=== PATIENT | male | born 1985 | race Caucasian/White ===

== ENCOUNTER 2016-11-22 03:20 | Emergency (ER) | payer SELFPAY ==
[~2016-11-22] VITALS: Ht 182.9 cm; Wt 105.0 kg
[2016-11-22 03:20] VITALS: Ht 182.9 cm; Wt 105.0 kg
[2016-11-22] MEDS ORDERED: IBUPROFEN 600 MG TAB PO ONE (04:00)
[2016-11-22] MEDS ORDERED: ONDANSETRON (ODT) 4 MG TAB ODT STA (04:00)
[2016-11-22] MEDS ORDERED: ACETAMINOPHEN 500 MG TAB PO STA (04:00)
--- NOTE | 2016-11-22 04:32 | ERD ---
ER Documentation Chief Complaint Date/Time DATE: 11/22/16 TIME: 04:17 Chief Complaint fever&vomiting, on/off SOB x 2-3 days,slight HESS HPI 31-year-old male presents here in emergency department for complaints of fever, runny nose nasal congestion, cough, on and off wheezing, headache. Patient has been having dry cough, does not cough up any phlegm or blood. Patient does not have any shortness breath or wheezing. Patient has been runny nose nasal congestion with clear nasal discharge. Patient is complaining of headache and body, throbbing pain, succession scale, not better or worse with anything. Patient also started to have vomiting. Patient has been having the symptoms for the last 2 days. Patient does not have any sick contacts. Patient does not complain of abdominal pain. Patient does not have any flank pain. Patient is now have any chest pain or palpitations. ROS All systems reviewed and are negative except as per history of present illness. Medications Home Meds Active Scripts Albuterol Sulfate* (Proair HFA*) 8.5 Gm Hfa.aer.ad, 2 PUFF INH Q4H Y for WHEEZING AND SOB, #1 INHALER Prov:IZABELA CHRISTY NP 11/22/16 Cetirizine Hcl* (Zyrtec*) 10 Mg Capsule, 10 MG PO DAILY, #30 TAB.CHEW Prov:IZABELA CHRISTY NP 11/22/16 Oxelnyucufr-K-Pojhulkrvd Hb* (Guaifenesin* DM Syrup) 120 Ml Syrup, 10 ML PO Q4H Y for COUGH, #120 ML Prov:IZABELA CHRISTY NP 11/22/16 Ibuprofen* (Motrin*) 600 Mg Tab, 600 MG PO Q6H Y for PAIN AND OR ELEVATED TEMP, #30 TAB Prov:IZABELA CHRISTY NP 11/22/16 Oseltamivir Phosphate* (Tamiflu*) 75 Mg Capsule, 75 MG PO BID for 5 Days, CAP Prov:IZABELA CHRISTY NP 11/22/16 Reported Medications [none] No Conflict Check 11/22/16 Allergies Allergies: Coded Allergies: No Known Allergy (Unverified , 11/22/16) PMhx/Soc Medical and Surgical Hx: pt denies Medical Hx, pt denies Surgical Hx History of Surgery: No Anesthesia Reaction: No Hx Neurological Disorder: No Hx Respiratory Disorders: No Hx Cardiac Disorders: No Hx Psychiatric Problems: No Hx Miscellaneous Medical Probl: No Hx Alcohol Use: No Hx Substance Use: No Hx Tobacco Use: No Smoking Status: Never smoker FmHx Family History: No coronary disease, No diabetes, No other Physical Exam Vitals Vital Signs Date Time Temp Pulse Resp B/P Pulse Ox O2 Delivery O2 Flow Rate FiO2 11/22/16 04:45 99.4 100 18 122/67 100 Room Air 11/22/16 03:20 100.4 117 22 113/62 98 Physical Exam GENERAL: The patient is well developed and appropriate for usual state of health, in no apparent distress. HEENT: Atraumatic. Ears: Normal tympanic membrane, no erythema or bulging. No ear canal swelling. No ear discharge. Nose: Erythematous nasal turbinates with clear nasal discharge. Throat: oropharynx erythematous with postnasal drip. No tonsillar swelling or tonsillar exudates. No lymphadenopathy. CHEST: Clear to auscultation bilaterally. There are no rales, wheezes or rhonchi. HEART: Regular rate and rhythm. No murmurs, clicks, rubs or gallops. No S3 or S4. ABDOMEN: Soft, nontender and nondistended. Good bowel sounds. No rebound or guarding. No gross peritonitis. No gross organomegaly or masses. No Nuñez sign or McBurney point tenderness. BACK: No midline or flank tenderness. EXTREMITIES: Equal pulses bilaterally. There is no peripheral clubbing, cyanosis or edema. No focal swelling or erythema. Full range of motion. Grossly neurovascularly intact. NEURO: Alert and oriented. Cranial nerves 2-12 intact. Motor strength in all 4 extremities with 5/5 strength. Sensation grossly intact. Normal speech and gait. SKIN: There is no apparent rash or petechia. The skin is warm and dry. HEMATOLOGIC AND LYMPHATIC: There is no evidence of excessive bruising or lymphedema. No gross cervical, axillary, or inguinal lymphadenopathy. Results 24 hrs Current Medications Medications (Trade) Dose Ordered Sig/Miguel Route PRN Reason Start Time Stop Time Status Last Admin Dose Admin Acetaminophen (Tylenol Tab) 500 mg ONCE STAT PO 11/22/16 04:00 11/22/16 04:01 DC 11/22/16 04:12 Ibuprofen (Motrin) 600 mg ONCE ONCE PO 11/22/16 04:00 11/22/16 04:01 DC 11/22/16 04:12 Ondansetron HCl (Zofran Odt) 4 mg ONCE STAT ODT 11/22/16 04:00 11/22/16 04:01 DC 11/22/16 04:12 Patient was given medicines for fever control here in the emergency department. After treatment, patient temperature improved and lower. Patient appears well and is hemodynamically stable. Patient was given Zofran here in the emergency department. After treatment, patient was able to tolerate po fluids here in the emergency department without any vomiting. There is no signs and symptoms of dehydration. Procedures/MDM Medical Decision Making: Patient symptoms are most likely consistent with influenza. There is low suspicion for Pneumonia at this time since patients lungs sounds are clear, patient O2 saturation is normal and patient doesnt show any respiratory distress. Radiology exam is not indicated at this time. There is low suspicion for other cardiopulmonary emergencies at this time such as CHF , Pulmonary Embolism, Pneumothorax, Aortic Aneurysm or any other cardiopulmonary emergencies at this time. There is low suspicion for sepsis. Patient appears well and is hemodynamically stable. Fever is controlled with medicines. Disposition: Home. Condition: Stable Prescriptions: Tamiflu, Zyrtec, ibuprofen, Zofran, guaifenesin DM albuterol Instructions: Patient is advised to take medications as prescribed. Patient is advised to rest. Patient advised to increase fluid intake, do humidifier at home and if possible, do salt water gargles. Patient is advised that if symptoms are worse, shortness of breath, uncontrolled fever, stridor, vomiting, worst signs and symptoms to return to emergency department immediately. Otherwise, patient is advised to follow up with primary doctor in 5-7 days. Departure Diagnosis: Primary Impression: Influenza-like symptoms Condition: Stable Patient Instructions: Influenza (Adult) Additional Instructions: Patient is advised to take medications as prescribed. Patient is advised to rest. Patient advised to increase fluid intake, do humidifier at home and if possible, do salt water gargles. Patient is advised that if symptoms are worse, shortness of breath, uncontrolled fever, stridor, vomiting, worst signs and symptoms to return to emergency department immediately. Otherwise, patient is advised to follow up with primary doctor in 5-7 days. IZABELA CHRISTY NP Nov 22, 2016 04:28
[2016-11-22] MEDS ORDERED: OSLT75C PO ×2 (04:33→21:30)
[2016-11-22] MEDS ORDERED: CETI10CA PO (04:33)
[2016-11-22] MEDS ORDERED: ALBU8.5H3 INH (04:33)
[2016-11-22] MEDS ORDERED: GUAI120S26 PO (04:33)
[2016-11-22] MEDS ORDERED: IBUP-1542 PO (04:33)
[2016-11-22 04:45] VITALS: BP 122/67; PULSE 100; RESP 18; TEMP 99.4
== END 2016-11-22 04:58 | disposition home or self-care (01) ==
LOC: FTE 03:20
DX: R50.9 Fever, unspecified (principal); R09.89 Other specified symptoms and signs involving the circulatory and respiratory systems; R09.81 Nasal congestion; R05 Cough; R06.2 Wheezing; R51 Headache; R11.10 Vomiting, unspecified
CPT/HCPCS: 99284

== ENCOUNTER 2016-11-22 17:00 | Emergency (ER) | payer OTHER ==
[~2016-11-22] VITALS: Wt 100.0 kg
[~2016-11-22 17:00] MED LIST: ALBU8.5H3 INH; CETI10CA PO; GUAI120S26 PO; IBUP-1542 PO; OSLT75C PO
[2016-11-22 17:09] VITALS: Wt 100.0 kg
[2016-11-22] MEDS ORDERED: ONDANSETRON 4 MG INJ IV STA (19:29)
[2016-11-22] MEDS ORDERED: SODIUM CHLORIDE 0.9% 1L BAG IV* STA (19:29)
[2016-11-22] MEDS ORDERED: ACETAMINOPHEN 325 MG TAB PO STA (19:29)
[2016-11-22 20:05] LABS: BASOPHILS % 0.1 % (0.0-2.0); EOSINOPHILS # 0.1 10^3/ul (0.0-0.5); EOSINOPHILS % 0.5 % (0.0-7.0); HEMATOCRIT 47.3 % (42.0-52.0); HEMOGLOBIN 16.4 g/dl (14.0-18.0); LYMPHOCYTES % 9.1 % (15.0-51.0); MEAN CORPUSCULAR HEMOGLOBIN 32.2 pg (29.0-33.0); MEAN CORPUSCULAR HGB CONC 34.8 g/dl (32.0-37.0); MEAN CORPUSCULAR VOLUME 92.7 fl (82.0-101.0); MEAN PLATELET VOLUME 8.3 fl (7.4-10.4); MONOCYTE # 1.2 10^3/ul (0.3-0.9); MONOCYTES % 10.6 % (0.0-11.0); NEUTROPHIL # 8.8 10^3/ul (1.6-7.5); NEUTROPHILS % 79.7 % (39.0-77.0); PLATELET COUNT 241 10^3/UL (140-440); RED CELL DISTRIBUTION WIDTH 12.8 % (11.5-14.5); UNCORRECTED WBC 11.1 10^3/ul (4.8-10.8); WHITE BLOOD COUNT 11.1 10^3/ul (4.8-10.8)
[2016-11-22 20:06] LABS: CONDITION 1
--- NOTE | 2016-11-22 20:09 | RADRPT ---
PROCEDURE: Chest x-ray CLINICAL INDICATION: Sepsis TECHNIQUE: Chest single view COMPARISON: None FINDINGS: The heart is normal in size. The pulmonary vessels are normal in caliber. The lungs are clear. Th e costophrenic angles are sharp. The visualized bony thorax is unremarkable. IMPRESSION: No acute cardiopulmonary disease. RPTAT: HH .Sotero Ayala MD, Date Time Electronically viewed and signed by .Sotero Ayala MD, MD on 11/22/2016 20:08 .W/
[2016-11-22 20:14] LABS: ALBUMIN 4.3 g/dl (3.3-4.9)
[2016-11-22 20:15] LABS: CHLORIDE 101 mmol/L (97-110); POTASSIUM 4.5 mmol/L (3.5-5.1); SODIUM 142 mmol/L (135-144)
[2016-11-22 20:17] LABS: ALBUMIN/GLOBULIN RATIO 1.13; ALKALINE PHOSPHATASE 105 IU/L (42-121); ANION GAP 20 (8-16); ASPARTATE AMINO TRANSFERASE 48 IU/L (15-46); BILIRUBIN,INDIRECT 0.5 mg/dl (0-1.1); BILIRUBIN,TOTAL 0.5 mg/dl (0.2-1.3); CARBON DIOXIDE 26 mmol/L (21-31); CREATININE 0.77 mg/dl (0.61-1.24); INR 1.05; PROTIME 13.7 Sec (12.2-14.2); PT RATIO 1.1; TOTAL PROTEIN 8.1 g/dl (6.1-8.1)
[2016-11-22 20:18] LABS: ALANINE AMINOTRANSFERASE 57 IU/L (13-69); BLOOD UREA NITROGEN 10 mg/dl (7-20); CALCIUM 9.3 mg/dl (8.4-10.2); GLUCOSE 105 mg/dl (70-220)
[2016-11-22 20:30] LABS: PARTIAL THROMBOPLASTIN TIME 30.9 Sec (25.0-35.0)
[2016-11-22 20:39] LABS: TROPONIN-I < 0.010 ng/ml (0.00-0.12)
[2016-11-22] MEDS ORDERED: OSLT75C PO (21:30)
[2016-11-22] MEDS ORDERED: OSELTAMIVIR 75 MG CAP PO ONE (21:30)
--- NOTE | 2016-11-22 21:30 | ERD ---
ER Documentation Chief Complaint Date/Time DATE: 11/22/16 TIME: 21:26 Chief Complaint fever and vomiting . seen for same today.feeling weak and fatigue HPI This is a 31-year-old male who presents to the emergency room for evaluation of fever, vomiting, body aches and chills. He was seen in the emergency room for the same and was discharged home. This patient presents again with worsening symptoms. He has not been on any medication according to the patient. ROS All systems reviewed and are negative except as per history of present illness. Medications Home Meds Active Scripts Albuterol Sulfate* (Proair HFA*) 8.5 Gm Hfa.aer.ad, 2 PUFF INH Q4H Y for WHEEZING AND SOB, #1 INHALER Prov:IZABELA CHRISTY NP 11/22/16 Cetirizine Hcl* (Zyrtec*) 10 Mg Capsule, 10 MG PO DAILY, #30 TAB.CHEW Prov:IZABELA CHRISTY NP 11/22/16 Jrpzmspbcgu-V-Avxgbvhfkn Hb* (Guaifenesin* DM Syrup) 120 Ml Syrup, 10 ML PO Q4H Y for COUGH, #120 ML Prov:IZABELA CHRISTY NP 11/22/16 Ibuprofen* (Motrin*) 600 Mg Tab, 600 MG PO Q6H Y for PAIN AND OR ELEVATED TEMP, #30 TAB Prov:IZABELA CHRISTY NP 11/22/16 Oseltamivir Phosphate* (Tamiflu*) 75 Mg Capsule, 75 MG PO BID for 5 Days, CAP Prov:IZABELA CHRISTY NP 11/22/16 Discontinued Reported Medications [none] No Conflict Check 11/22/16 Allergies Allergies: Coded Allergies: No Known Allergy (Unverified , 11/22/16) PMhx/Soc History of Surgery: No Anesthesia Reaction: No Hx Neurological Disorder: No Hx Respiratory Disorders: No Hx Cardiac Disorders: No Hx Psychiatric Problems: No Hx Miscellaneous Medical Probl: No Hx Alcohol Use: No Hx Substance Use: No Hx Tobacco Use: No Smoking Status: Never smoker Physical Exam Vitals Vital Signs Date Time Temp Pulse Resp B/P Pulse Ox O2 Delivery O2 Flow Rate FiO2 11/22/16 21:23 100.4 101 20 100/66 Room Air 11/22/16 17:09 103.5 120 20 116/69 100 Physical Exam INITIAL VITAL SIGNS: Reviewed by me GENERAL: The patient is ill-appearing, no acute distress, warm to touch HEENT: Dry mucous membranes pupils equal, round, and reactive to light. EOMI. There is no scleral icterus. NECK: C-spine is soft and supple, there is no meningismus. There is no cervical lymphadenopathy. LUNGS: Clear to auscultation bilaterally. There are no rales, wheezes or rhonchi. HEART: Tachycardic, no murmurs, clicks, rubs or gallops. ABDOMEN: Soft, non-tender, non-distended. There are bowel sounds in all four quadrants. No rebound or guarding. EXTREMITIES: There is no peripheral cyanosis or edema. No focal swelling or erythema. NEUROLOGICAL: The patient moves all four extremities with 5/5 strength. Cranial nerves II - XII are intact. Normal gait. Alert and oriented SKIN: There is no apparent rash or petechiae. HEME/LYMPHATIC: There is no evidence of excessive bruising or lymphedema. PSYCHIATRIC: The patient does not appear anxious or depressed. Result Diagram: 11/22/16194411/22/161944 Results 24 hrs Laboratory Tests Test 11/22/16 19:45 Activated Partial Thromboplast Time 30.9Sec Alanine Aminotransferase (ALT/SGPT) 57IU/L Albumin 4.3g/dl Albumin/Globulin Ratio 1.13 Alkaline Phosphatase 105IU/L Anion Gap 20 Aspartate Amino Transf (AST/SGOT) 48IU/L Basophils # 0.010^3/ul Basophils % 0.1% Blood Urea Nitrogen 10mg/dl Calcium Level 9.3mg/dl Carbon Dioxide Level 26mmol/L Chloride Level 101mmol/L Creatinine 0.77mg/dl Direct Bilirubin 0.00mg/dl Eosinophils # 0.110^3/ul Eosinophils % 0.5% Globulin 3.80g/dl Glucose Level 105mg/dl Hematocrit 47.3% Hemoglobin 16.4g/dl INR International Normalized Ratio 1.05 Indirect Bilirubin 0.5mg/dl Lactic Acid Level 3.0mmol/L Lymphocytes # 1.010^3/ul Lymphocytes % 9.1% Mean Corpuscular Hemoglobin 32.2pg Mean Corpuscular Hemoglobin Concent 34.8g/dl Mean Corpuscular Volume 92.7fl Mean Platelet Volume 8.3fl Monocytes # 1.210^3/ul Monocytes % 10.6% Neutrophils # 8.810^3/ul Neutrophils % 79.7% Nucleated Red Blood Cells # 0.010^3/ul Nucleated Red Blood Cells % 0.0/100WBC Platelet Count 54742^3/UL Potassium Level 4.5mmol/L Prothrombin Time 13.7Sec Prothrombin Time Ratio 1.1 Red Blood Count 5.1010^6/ul Red Cell Distribution Width 12.8% Sodium Level 142mmol/L Total Bilirubin 0.5mg/dl Total Protein 8.1g/dl Troponin I < 0.010ng/ml White Blood Count 11.110^3/ul Current Medications Medications (Trade) Dose Ordered Sig/Miguel Route PRN Reason Start Time Stop Time Status Last Admin Dose Admin Sodium Chloride (NS) 3,100 ml BOLUS OVER 2 HOURS STAT IV* 11/22/16 19:29 11/22/16 19:31 DC 11/22/16 20:00 Acetaminophen (Tylenol Tab) 650 mg ONCE STAT PO 11/22/16 19:29 11/22/16 19:31 DC 11/22/16 19:58 Ondansetron HCl (Zofran Inj) 4 mg ONCE STAT IV 11/22/16 19:29 11/22/16 19:31 DC 11/22/16 19:58 Oseltamivir Phosphate (Tamiflu) 150 mg ONCE ONCE PO 11/22/16 21:30 11/22/16 21:31 11/22/16 21:16 Procedures/MDM EKG: Rate/Rhythm: Sinus tachycardia QRS, ST, T-waves: [No changes consistent w/ acute ischemia] Impression: [No evidence of ischemia or arrhythmia] Chest X-ray 1V Interpreted by me: Soft Tissue: No acute abnormalities Bones: No acute abnormalities Mediastinum/Cardiac Silhouette/Lungs: [No acute abnormalities] This 31-year-old male presents to the ER for evaluation of fever, generalized malaise, body aches. This patient was febrile, tachycardic when I initially evaluated him. He did have a septic workup in the emergency room. He did have a positive influenza A swab. He was given 30 cc/kg of IV normal saline, and was also started on Tamiflu. This patient is now afebrile, his heart rate has decreased significantly, is in no acute distress, not talked to him about his diagnosis and he is okay with her plan of care for discharge with Tamiflu. Departure Diagnosis: Primary Impression: Influenza A Additional Impression: Lactic acidosis Condition: Stable GLADYS CAMERON DO Nov 22, 2016 21:29
[2016-11-22 21:31] LABS: URINE BILIRUBIN (Dip) NEGATIVE (NEGATIVE); URINE COLOR LT. YELLOW (YELLOW); URINE GLUCOSE (Dip) NEGATIVE (NEGATIVE); URINE KETONES (Dip) TRACE (NEGATIVE); URINE LEUKOCYTE ESTERASE (Dip) NEGATIVE (NEGATIVE); URINE NITRITE (Dip) NEGATIVE (NEGATIVE); URINE TOTAL PROTEIN (Dip) NEGATIVE (NEGATIVE); URINE UROBILINOGEN (Dip) 0.2 E.U./dL (0.1-1.0)
[2016-11-22 21:38] LABS: ADD UMIC NO; URINE BLOOD (Dip) NEGATIVE (NEGATIVE)
[2016-11-22 23:10] VITALS: BP 103/58; PULSE 94; RESP 16; TEMP 99.5
== END 2016-11-22 23:14 | disposition home or self-care (01) ==
LOC: E/R 17:00
DX: J09.X2 Influenza due to identified novel influenza A virus with other respiratory manifestations (principal); E87.2 Acidosis; R11.10 Vomiting, unspecified; R06.02 Shortness of breath
CPT/HCPCS: 36415; 71010; 80053; 81003; 83605; 84484; 85025; 85610; 85730; 87040; 87086; 87400; 93005; 96374; J2405; J7030; Z7502; Z7610

== ENCOUNTER 2017-09-05 23:05 | Emergency (ER) | payer SELFPAY | END 2017-09-05 23:50 | disposition left against medical advice (07) | LOC: E/R 23:05 | DX: Z53.21 Procedure and treatment not carried out due to patient leaving prior to being seen by health care provider (principal) ==

== ENCOUNTER 2018-11-20 12:55 | Inpatient (IN) | payer OTHER ==
[~2018-11-20] VITALS: Ht 172.7 cm; Wt 106.8 kg
[~2018-11-20 12:55] MED LIST changes: -ALBU8.5H3 INH; +ALBU8.5H8 INH; +OSEL75CA23 PO; -OSLT75C PO
[2018-11-20] MEDS ORDERED: SODIUM CHLORIDE 0.9% 1L BAG IV* STA (16:28)
[2018-11-20] MEDS ORDERED: IBUPROFEN 600 MG TAB PO ONE (16:30)
[2018-11-20] MEDS ORDERED: ACETAMINOPHEN 325 MG TAB PO ONE (16:30)
[2018-11-20] MEDS ORDERED: CEFEPIME 2GM/50 ML (PMX) 50 ML IVPB STA (18:04)
[2018-11-20] MEDS ORDERED: KETOROLAC 30 MG INJ IV STA (18:05)
[2018-11-20] MEDS ORDERED: AMPICILLIN 1 GM/NS (PMX) 50 ML IVPB ONE (18:30)
[2018-11-20] MEDS ORDERED: VANCOMYCIN 1 GM (PMX) 250 ML IVPB ONE (18:30)
[2018-11-20] MEDS ORDERED: SOD CHLORIDE 0.9% 1,000 ML IV SCH (20:06)
[2018-11-20] MEDS ORDERED: ACETAMINOPHEN 325 MG TAB PO PRN ×2 (20:30→21:00)
[2018-11-20] MEDS ORDERED: ONDANSETRON 4 MG INJ IV PRN (20:30)
[2018-11-20] MEDS ORDERED: HYDROCODONE/APAP (5/325) TAB PO PRN (21:00)
[2018-11-20] MEDS ORDERED: BISACODYL (EC) 5 MG TAB PO PRN (21:00)
[2018-11-20] MEDS ORDERED: GUAIFENESIN/DM 5ML CUP PO PRN (21:00)
[2018-11-20] MEDS ORDERED: DOCUSATE SODIUM 100 MG CAP PO PRN (21:00)
[2018-11-20] MEDS ORDERED: NACL 0.9% 3 ML SYG IV SCH (21:00)
[2018-11-20] MEDS ORDERED: OSELTAMIVIR 75 MG CAP PO SCH (21:00)
[2018-11-20] MEDS ORDERED: traMADol 50 MG TAB PO PRN (21:30)
--- NOTE | 2018-11-20 21:35 | HP ---
Date/Time of Note Date/Time of Note DATE: 11/20/18 TIME: 21:35 Assessment/Plan VTE Prophylaxis SCD applied (from Nsg): Yes Pharmacological prophylaxis: NA/contraindicated Pharm contraindication: low risk/ambulating Lines/Catheters IV Catheter Type (from Nrsg): Saline Lock Assessment/Plan Hospital Course This is a 33-year-old male being admitted to the telemetry floor for: #1 sepsis: Secondary to strep pharyngitis. Patient did receive multiple IV antibiotics in the ED. we will start the patient on penicillin V 500 mg 3 times p.o. daily for 10 days. Obtain culture results. Lactate level within normal values. Influenza was negative. #2 elevated troponin: Type I versus type II. Likely secondary to demand given underlying sepsis vs. myocarditis Initial troponin was 0.19 will trend cardiac enzymes. EKG is nonischemic. Will check an echocardiogram. Consider cardiology consultation. #3 strep pharyngitis: Penicillin V 500 mg 3 times p.o. daily for 10 days. Tramadol for pain, holding off on NSAIDs at the current time given #2. #4 questionable cardiopulmonary history: Patient does have a left chest wall surgical scar, however patient is not sure what exactly he had surgery for. Currently not on any medications. #5 obesity: We will check hemoglobin A1c, lipid panel, TSH #6 DVT and GI prophylaxis: SCDs, no GI prophylaxis indicated Further treatment strategy will be implemented as per the clinical course. Result Diagram: 11/20/18 1641 11/20/18 1641 Results 24hrs Laboratory Tests Test 11/20/18 16:41 11/20/18 16:52 11/20/18 20:08 White Blood Count 18.4 #H Red Blood Count 5.31 Hemoglobin 16.8 Hematocrit 47.7 Mean Corpuscular Volume 89.8 Mean Corpuscular Hemoglobin 31.6 Mean Corpuscular Hemoglobin Concent 35.2 Red Cell Distribution Width 12.3 Platelet Count 279 Mean Platelet Volume 10.1 # Immature Granulocytes % 0.400 Neutrophils % 83.6 H Lymphocytes % 9.5 L Monocytes % 6.0 Eosinophils % 0.2 Basophils % 0.3 Nucleated Red Blood Cells % 0.0 Immature Granulocytes # 0.080 H Neutrophils # 15.3 H Lymphocytes # 1.7 Monocytes # 1.1 H Eosinophils # 0.0 Basophils # 0.1 Nucleated Red Blood Cells # 0.0 Prothrombin Time 12.5 Prothrombin Time Ratio 1.0 INR International Normalized Ratio 0.92 Activated Partial Thromboplast Time 31.5 Urine Color YELLOW Urine Clarity CLEAR Urine pH 7.0 Urine Specific Coulter 1.021 Urine Ketones 2+ H Urine Nitrite NEGATIVE Urine Bilirubin NEGATIVE Urine Urobilinogen 2+ H Urine Leukocyte Esterase NEGATIVE Urine Microscopic RBC 14 H Urine Microscopic WBC 1 Urine Hemoglobin 2+ H Urine Glucose NEGATIVE Urine Total Protein NEGATIVE Sodium Level 141 Potassium Level 3.9 Chloride Level 100 Carbon Dioxide Level 26 Anion Gap 15 H Blood Urea Nitrogen 12 Creatinine 0.67 Est Glomerular Filtrat Rate mL/min > 60 Glucose Level 103 Calcium Level 9.3 Troponin I 0.190 *H 0.186 *H Monoscreen Negative POC Venous Lactate 1.8 Lactic Acid Level 1.0 Creatine Kinase 156 Creatine Kinase Index 0.9 Creatinine Kinase MB (Mass) 1.43 HPI/ROS Admit Date/Time Admit Date/Time Hx of Present Illness Chief complaint: Chest pain body aches times 2 days, sore throat Patient is a poor historian. This is a 33-year-old male patient with a past medical history of possible cardiac history/possible pneumothorax who presents to the ED complaining of throat pain, fever, headache, body aches that started intermittently for the past 2 days. Please note in the emergency department he reports symptoms for the past 8 days. Patient reports that he started to have chest pain and shortness of breath started yesterday. States that he went to the hospital yesterday and was given Tamiflu for his symptoms but have not found any relief. Patient does report fevers, he denies any chest pain or shortness of breath. He does report painful swallowing and throat pain. He denies any cough. Allergies: NKDA Medications: None ROS Const: As per HPI Eyes : No pain discharge or redness or change in visual acuity ENT: As per HPI Respiratory: As per HPI Cardiovascular: As per HPI GI : no change in appetite, abdominal pain, nausea, vomiting, diarrhea, constipation, or change in the color his stool Genitourinary: No dysuria, hematuria, flank pain , discharge or CVA tenderness Musculoskeletal: No joint pain, back pain, neck pain, restricted range of motion in neck or joints Skin: No rash, bruising or hives Neuro: No headache, dizziness, syncope, seizure, focal weakness Endocrine: No polyuria, polydipsia, temperature intolerance Psych: No hallucination, depression, anxiety or suicidal ideation PMH/Family/Social Past Medical History Questionable cardiac/lung history Medications Current Medications Sodium Chloride 1,000 ml @ 80 mls/hr [id number] IV ; Start 11/20/18 at 20:06; Stop 11/21/18 at 08:35 Ondansetron HCl (Zofran Inj) 4 mg ER BRIDGE PRN IV NAUSEA AND/OR VOMITING; Start 11/20/18 at 20:30; Stop 11/21/18 at 20:29 Acetaminophen (Tylenol Tab) 650 mg ER BRIDGE PRN PO MILD PAIN(1-3)OR ELEVATED TEMP; Start 11/20/18 at 20:30; Stop 11/21/18 at 20:29 Sodium Chloride 1,000 ml @ 80 mls/hr [id number] IV ; Start 11/20/18 at 20:34 IV Flush (NS 3 ml) 3 ml PER PROTOCOL IV ; Start 11/20/18 at 21:00 Acetaminophen (Tylenol Tab) 650 mg Q6H PRN PO PAIN LEVEL 1-3 OR FEVER; Start 11/20/18 at 21:00 Acetaminophen/ Hydrocodone Bitart ([place] (5/325)) 1 tab Q6H PRN PO PAIN LEVEL 4-6; Start 11/20/18 at 21:00 Docusate Sodium (Colace) 100 mg Q12H PRN PO CONSTIPATION; Start 11/20/18 at 21:00 Bisacodyl (Dulcolax) 5 mg DAILY PRN PO CONSTIPATION; Start 11/20/18 at 21:00 Guaifenesin/ Dextromethorphan (Robitussin Dm Liquid Cup) 10 ml Q4H PRN PO COUGH; Start 11/20/18 at 21:00 Penicillin V Potassium (Penicillin V K) 500 mg Q8 PO ; Start 11/20/18 at 22:00; Stop 11/30/18 at 21:59 Tramadol HCl (Ultram) 50 mg Q6H PRN PO MODERATE PAIN LEVEL 7-8; Start 11/20/18 at 21:30 Coded Allergies: No Known Allergy (Unverified , 11/20/18) Past Surgical History Left chest wall surgery? Family History Significant Family History: no pertinent family hx Social History Alcohol Use: none Smoking Status: Never smoker Drug Use: none Exam/Review of Systems Vital Signs Vitals Vital Signs Date Temp Pulse Resp B/P (MAP) Pulse Ox O2 O2 Flow FiO2 Time Delivery Rate 11/20/18 86 14 118/66 97 Room Air 20:30 (83) 11/20/18 102.3 16:51 Exam Exam General: Patient does appear ill, does not appear to be in any acute distress HEENT: Atraumatic, normocephalic. The pupils are equal, round and reactive. Extraocular motor are intact, swelling and erythema of the oropharynx, tonsillar exudates Neck: Right tender cervical lymphadenopathy Chest: Nontender Lungs: Clear to auscultation bilaterally no crackles rales or wheezing Heart: Normal S1-S2, Regular rhythm and rate. Abdomen: Soft , nontender, nondistended , bowel sounds are present. No guarding no rebound tenderness , No masses or organomegaly. No costovertebral temporal angle mass Extremities: Normal to inspection, no edema no cyanosis Skin: Left lateral chest wall surgical scar Neurologic: Normal mental status, speech normal, cranial nerves II through XII are intact, motor and sensory are intact, Additional Comments EKG: Sinus tachycardia at approximately 100 bpm, no T wave or ST abnormalities concerning for acute ischemia PROCEDURE: XR Chest. CLINICAL INDICATION: chest pain TECHNIQUE: Single frontal view of the chest was obtained COMPARISON: CR CHEST 11/22/2016 FINDINGS: The heart and mediastinum are within normal limits. The lungs are clear. There is no pleural effusion or pneumothorax. RPTAT: AA IMPRESSION: No acute disease. .Haja Osuna MD, Date Time Electronically viewed and signed by .Haja Osuna MD, on 11/20/2018 16:55 .S/ CC: FABIÁN DILLARD PA-C [id number] GLORIA GERBER Nov 20, 2018 21:35
--- NOTE | 2018-11-20 21:35 | ERD ---
ER Documentation Chief Complaint Chief Complaint THROAT PAIN, FEVER, HEADACHE, BODYACHES HPI 33-year-old male patient with no significant past medical history presents to the ED complaining of throat pain, fever, headache, body aches that started intermittently for the past 8 days. Patient reports that he started to have chest pain and shortness of breath started yesterday. States that he went to the hospital yesterday and was given Tamiflu for his symptoms but have not found any relief. Denies any fever, chills, nausea, vomiting, diarrhea, neck stiffness, abdominal pain, wheezing. ROS All systems reviewed and are negative except as per history of present illness. Medications Home Meds Active Scripts Bfgfqgfhzpx-F-Vzmqrhbulu Hb* (Guaifenesin* DM Syrup) 120 Ml Syrup, 10 ML PO Q4H PRN for COUGH, #120 ML Prov:IZABELA CHRISTY NP 11/22/16 Oseltamivir Phosphate* (Tamiflu*) 75 Mg Capsule, 75 MG PO BID for 5 Days, CAP Prov:IZABELA CHRISTY NP 11/22/16 Discontinued Scripts Oseltamivir Phosphate* (Tamiflu*) 75 Mg Capsule, 75 MG PO BID for 5 Days, CAP Prov:GLADYS CAMERON DO 11/22/16 Albuterol Sulfate* (Proair HFA*) 8.5 Gm Hfa.aer.ad, 2 PUFF INH Q4H PRN for WHEEZING AND SOB, #1 INHALER Prov:IZABELA CHRISTY NP 11/22/16 Cetirizine Hcl* (Zyrtec*) 10 Mg Capsule, 10 MG PO DAILY, #30 TAB.CHEW Prov:IZABELA CHRISTY NP 11/22/16 Ibuprofen* (Motrin*) 600 Mg Tab, 600 MG PO Q6H PRN for PAIN AND OR ELEVATED TEMP, #30 TAB Prov:IZABELA CHRISTY NP 11/22/16 Allergies Allergies: Coded Allergies: No Known Allergy (Unverified , 11/20/18) PMhx/Soc Medical and Surgical Hx: pt denies Medical Hx, pt denies Surgical Hx History of Surgery: Yes (back) Anesthesia Reaction: No Hx Neurological Disorder: No Hx Respiratory Disorders: No Hx Cardiac Disorders: No Hx Psychiatric Problems: No Hx Miscellaneous Medical Probl: No Hx Alcohol Use: No Hx Substance Use: No Hx Tobacco Use: No Smoking Status: Never smoker FmHx Family History: No diabetes, No coronary disease Physical Exam Vitals Vital Signs Date Temp Pulse Resp B/P (MAP) Pulse Ox O2 O2 Flow FiO2 Time Delivery Rate 11/20/18 102.3 16:51 11/20/18 102.8 16:45 11/20/18 101.5 114 16 121/78 99 13:01 (92) Physical Exam Const: Gqm-cps-hianwyiww, well-nourished. In no acute distress. Head: Atraumatic, normocephalic Eyes: Normal Conjunctiva without injection. No purulent discharge. PERRL. EOMI ENT: Normal external ear. Ear canal without erythema. Tympanic membrane pearly g ray without effusion or bulging. Nasal canal clear with normal turbinates. Moist oropharynx without tonsillar exudates. Non-erythematous pharynx. Uvula midline. No drooling. No trismus. Neck: Full range of motion. No meningismus. No cervical lymphadenopathy. Resp: Clear to auscultation bilaterally. No wheezing, rhonchi, rales, or crackles. No accessory muscle use. No retractions. Cardio: Regular rate and rhythm. No murmurs, rubs or gallops. Abd: Soft, non tender, non distended. Normal bowel sounds. No palpable masses. No rebound tenderness. No guarding. Skin: No petechiae or rashes Back: No midline tenderness. No CVA tenderness. Ext: No cyanosis, or edema. Neur: Awake and alert. Psych: Normal Mood and Affect Result Diagram: 11/21/1844 11/21/1844 Results 24 hrs Laboratory Tests Test 11/20/18 16:41 11/20/18 16:52 White Blood Count 18.4 10^3/ul Red Blood Count 5.31 10^6/ul Hemoglobin 16.8 g/dl Hematocrit 47.7 % Mean Corpuscular Volume 89.8 fl Mean Corpuscular Hemoglobin 31.6 pg Mean Corpuscular Hemoglobin Concent 35.2 g/dl Red Cell Distribution Width 12.3 % Platelet Count 279 10^3/UL Mean Platelet Volume 10.1 fl Immature Granulocytes % 0.400 % Neutrophils % 83.6 % Lymphocytes % 9.5 % Monocytes % 6.0 % Eosinophils % 0.2 % Basophils % 0.3 % Nucleated Red Blood Cells % 0.0 /100WBC Immature Granulocytes # 0.080 10^3/ul Neutrophils # 15.3 10^3/ul Lymphocytes # 1.7 10^3/ul Monocytes # 1.1 10^3/ul Eosinophils # 0.0 10^3/ul Basophils # 0.1 10^3/ul Nucleated Red Blood Cells # 0.0 10^3/ul Prothrombin Time 12.5 Sec Prothrombin Time Ratio 1.0 INR International Normalized Ratio 0.92 Activated Partial Thromboplast Time 31.5 Sec Urine Color YELLOW Urine Clarity CLEAR Urine pH 7.0 Urine Specific [place] 1.021 Urine Ketones 2+ mg/dL Urine Nitrite NEGATIVE mg/dL Urine Bilirubin NEGATIVE mg/dL Urine Urobilinogen 2+ mg/dL Urine Leukocyte Esterase NEGATIVE Ángel/ul Urine Microscopic RBC 14 /HPF Urine Microscopic WBC 1 /HPF Urine Hemoglobin 2+ mg/dL Urine Glucose NEGATIVE mg/dL Urine Total Protein NEGATIVE mg/dl Sodium Level 141 mmol/L Potassium Level 3.9 mmol/L Chloride Level 100 mmol/L Carbon Dioxide Level 26 mmol/L Anion Gap 15 Blood Urea Nitrogen 12 mg/dl Creatinine 0.67 mg/dl Est Glomerular Filtrat Rate mL/min > 60 mL/min Glucose Level 103 mg/dl Calcium Level 9.3 mg/dl Troponin I 0.190 ng/ml Monoscreen Negative POC Venous Lactate 1.8 mmol/L Current Medications Medications Dose Sig/Miguel Start Time Status Last (Trade) Ordered Route PRN Stop Time Admin Dose Reason Admin Sodium 3,200 ml BOLUS OVER 2 11/20/18 DC 11/20/18 Chloride HOURS STAT 16:28 11/20/18 16:45 (NS) IV* 16:29 Ibuprofen 600 mg ONCE ONCE 11/20/18 DC 11/20/18 (Motrin) PO 16:30 11/20/18 16:51 16:31 650 mg ONCE ONCE 11/20/18 DC 11/20/18 Acetaminophen PO 16:30 11/20/18 16:45 (Tylenol 16:31 Tab) Cefepime HCl 50 ml @ ONCE STAT 11/20/18 DC 11/20/18 100 mls/hr IVPB 18:04 11/20/18 18:27 18:33 Vancomycin 250 ml @ ONCE ONCE 11/20/18 DC 11/20/18 HCl 125 mls/hr IVPB 18:30 11/20/18 19:53 20:29 Ampicillin 50 ml @ ONCE ONCE 11/20/18 DC 11/20/18 100 mls/hr IVPB 18:30 11/20/18 19:25 18:59 Ketorolac 30 mg ONCE STAT 11/20/18 DC 11/20/18 Tromethamine IV 18:05 11/20/18 18:21 (Toradol) 18:06 Sodium 1,000 ml @ [id number] IV 11/20/18 DC 11/20/18 Chloride 80 mls/hr 20:06 11/21/18 22:07 08:35 Procedures/MDM 33-year-old male patient with no significant past medical history presents to the ED complaining of throat pain, fever, headache, body aches. Patient is febrile at 101.5 and tachycardic at 114. Patient Sirs criteria. A CBC, BMP, troponin, EKG, chest x-ray, influenza, rapid strep, Monospot was ordered to further evaluate patient. Patient was also given ibuprofen, Tylenol here in the ED to downtrend patient's temperature. Patient is also given 30 mL/kg normal saline with improvement of his symptoms. CBC: Leukocytosis of 18.9. No e/o anemia. CMP: No e/o severe acidosis, alkalosis, renal failure, diabetic ketoacidosis, liver disease Lipase within normal limits. Urine: No leukocyte esterase, no nitrites, no hematuria. PROCEDURE: XR Chest. CLINICAL INDICATION: chest pain TECHNIQUE: Single frontal view of the chest was obtained COMPARISON: CR CHEST 11/22/2016 FINDINGS: The heart and mediastinum are within normal limits. The lungs are clear. There is no pleural effusion or pneumothorax. RPTAT: AA IMPRESSION: No acute disease. EKG reviewed and interpreted by Dr. Hawk Rate/Rhythm: [100 bpm, Normal Sinus Rhythm] No ectopy, no ST elevations, normal axis. QRS, ST, T-waves: [No changes consistent w/ acute ischemia] Impression: [No evidence of ischemia or arrhythmia] Diagnosis: Strep pharyngitis, Elevated Troponin, Leukocytosis Patient get admitted for an elevated troponin of 0.189 for further evaluation and treatment. This with my supervising physician, Dr. Tejada, who admit the patient at this time. Patient is hemodynamically stable. Total CK, MB was also added as well as repeat troponin. Patient will also receive IV antibiotics, cefepime, vancomycin and ampicillin. Disclaimer: Inadvertent spelling and grammatical errors are likely due to EHR/dictation software use and do not reflect on the overall quality of patient care. Also, please note that the electronic time recorded on this note does not necessarily reflect the actual time of the patient encounter. Departure Diagnosis: Primary Impression: Strep pharyngitis Additional Impressions: Elevated troponin Leukocytosis Leukocytosis type: unspecified Qualified Codes: D72.829 - Elevated white blood cell count, unspecified Condition: Critical FABIÁN DILLARD PA-C Nov 20, 2018 21:35
[2018-11-21] VITALS (10 sets, daily range): BP systolic 101–117; BP diastolic 56–69; PULSE 64–89; RESP 16–19; Ht 172.7 cm; Wt 106.8 kg
[2018-11-21] MEDS: PENICILLIN V K 250 MG TAB PO SCH ×4 (00:06→21:29)
[2018-11-21] MEDS: SOD CHLORIDE 0.9% 1,000 ML IV SCH ×3 (00:43→21:30)
--- NOTE | 2018-11-21 14:07 | PN ---
Date/Time of Note Date/Time of Note DATE: 11/21/18 TIME: 13:48 Assessment/Plan VTE Prophylaxis Risk score (from [facility] [place])>0 risk: 0 SCD applied (from [facility] [place]): Yes Pharmacological prophylaxis: other Pharm contraindication: low risk/ambulating Lines/Catheters IV Catheter Type (from [facility]): Peripheral IV Urinary Cath still in place: No Assessment/Plan Assessment/Plan 1. Strep pharyngitis, on PCN V 2. Elevated troponin, significance unclear, follow up with echo/cardiology 3. Left chest surgical scar, unclear history 4. Obesity 5. DVT prophylaxis: SCD Result Diagram: 11/21/18 0544 11/21/18 0544 Results 24hrs Laboratory Tests Test 11/20/18 16:41 11/20/18 16:52 11/20/18 20:08 11/21/18 05:44 White Blood Count 18.4 #H 13.0 #H Red Blood Count 5.31 4.80 Hemoglobin 16.8 15.1 Hematocrit 47.7 44.1 Mean Corpuscular Volume 89.8 91.9 Mean Corpuscular 31.6 31.5 Hemoglobin Mean Corpuscular 35.2 34.2 Hemoglobin Concent Red Cell Distribution 12.3 12.0 Width Platelet Count 279 251 Mean Platelet Volume 10.1 # 10.3 Immature Granulocytes % 0.400 0.400 Neutrophils % 83.6 H 76.4 Lymphocytes % 9.5 L 14.4 L Monocytes % 6.0 7.2 Eosinophils % 0.2 1.1 Basophils % 0.3 0.5 Nucleated Red Blood 0.0 0.0 Cells % Immature Granulocytes # 0.080 H 0.050 H Neutrophils # 15.3 H 9.9 H Lymphocytes # 1.7 1.9 Monocytes # 1.1 H 0.9 Eosinophils # 0.0 0.1 Basophils # 0.1 0.1 Nucleated Red Blood 0.0 0.0 Cells # Prothrombin Time 12.5 Prothrombin Time Ratio 1.0 INR International 0.92 Normalized Ratio Activated 31.5 Partial Thromboplast Time Urine Color YELLOW Urine Clarity CLEAR Urine pH 7.0 Urine Specific [place] 1.021 Urine Ketones 2+ H Urine Nitrite NEGATIVE Urine Bilirubin NEGATIVE Urine Urobilinogen 2+ H Urine Leukocyte Esterase NEGATIVE Urine Microscopic RBC 14 H Urine Microscopic WBC 1 Urine Hemoglobin 2+ H Urine Glucose NEGATIVE Urine Total Protein NEGATIVE Sodium Level 141 143 Potassium Level 3.9 3.9 Chloride Level 100 106 Carbon Dioxide Level 26 25 Anion Gap 15 H 12 Blood Urea Nitrogen 12 9 Creatinine 0.67 0.52 L Est Glomerular Filtrat > 60 > 60 Rate mL/min Glucose Level 103 92 Calcium Level 9.3 8.5 Troponin I 0.190 *H 0.186 *H 0.111 Monoscreen Negative POC Venous Lactate 1.8 Lactic Acid Level 1.0 Creatine Kinase 156 154 Creatine Kinase Index 0.9 1.1 Creatinine Kinase MB 1.43 1.76 (Mass) Hemoglobin A1c 5.3 Magnesium Level 2.0 Total Bilirubin 0.5 Direct Bilirubin 0.00 Indirect Bilirubin 0.5 Aspartate Amino 27 Transf (AST/SGOT) Alanine 43 Aminotransferase (ALT/SG PT) Alkaline Phosphatase 78 Total Protein 6.9 Albumin 3.5 Globulin 3.40 H Albumin/Globulin Ratio 1.02 Triglycerides Level 86 Cholesterol Level 149 LDL Cholesterol, 95 Calculated HDL Cholesterol 37 Cholesterol/HDL Ratio 4.0 Thyroid Stimulating 3.050 Hormone (TSH) Subjective 24 Hr Interval Summary Free Text/Dictation afebrile, no shortness of breath, no dysphagia Exam/Review of Systems Vital Signs Vitals Vital Signs Date Temp Pulse Resp B/P (MAP) Pulse Ox O2 O2 Flow FiO2 Time Delivery Rate 11/21/18 68 13:19 11/21/18 97.5 18 101/57 95 Room Air 11:09 (72) Intake and Output 11/20/18 11/20/18 11/21/18 1515:00 23:00 07:00 IntakeIntake Total 250 ml 580 ml OutputOutput Total 800 ml BalanceBalance 250 ml -220 ml Exam Constitutional: alert, oriented, well developed Psych: no complaints, nl mood/affect Head: normocephalic, atraumatic Eyes: nl conjunctiva, EOMI, nl lids ENMT: nl external ears & nose, nl lips & teeth, nl nasal mucosa & septum Neck: supple, non-tender Respiratory: clear to auscultation, normal air movement; No congested cough, No crackles/rales, No diminished breath sounds, No intercostal retraction, No labored breathing, No respirations, No tactile fremitus, No wheezing, No other Cardiovascular: regular rate and rhythm, nl pulses; No bruits, No diastolic murmur, No edema, No gallop, No irregular rhythm, No jugular venous distention (JVD), No murmurs/extra sounds, No rub, No systolic murmur, No S3, No S4, No other Gastrointestinal: soft, nl liver, spleen, non-tender Musculoskeletal: nl extremities to inspection Extremities: normal pulses; No calf tenderness, No cyanosis, No clubbing, No edema, No pitting pedal edema, No palpable cord, No tenderness, No other Neurological: COMIC WRITER II-XII intact, nl mental status, nl speech, nl strength Medications Medications Current Medications Sodium Chloride 1,000 ml @ 80 mls/hr [id number] IV Last administered on 11/21/18at 09:55; Admin Dose 80 MLS/HR; Start 11/20/18 at 20:34 IV Flush (NS 3 ml) 3 ml PER PROTOCOL IV ; Start 11/20/18 at 21:00 Acetaminophen (Tylenol Tab) 650 mg Q6H PRN PO PAIN LEVEL 1-3 OR FEVER; Start 11/20/18 at 21:00 Acetaminophen/ Hydrocodone Bitart ([place] (5/325)) 1 tab Q6H PRN PO PAIN LEVEL 4-6; Start 11/20/18 at 21:00 Docusate Sodium (Colace) 100 mg Q12H PRN PO CONSTIPATION; Start 11/20/18 at 21:00 Bisacodyl (Dulcolax) 5 mg DAILY PRN PO CONSTIPATION; Start 11/20/18 at 21:00 Guaifenesin/ Dextromethorphan (Robitussin Dm Liquid Cup) 10 ml Q4H PRN PO COUGH; Start 11/20/18 at 21:00 Penicillin V Potassium (Penicillin V K) 500 mg Q8 PO Last administered on 11/21/18at 09:54; Admin Dose 500 MG; Start 11/20/18 at 22:00; Stop 11/30/18 at 21:59 Tramadol HCl (Ultram) 50 mg Q6H PRN PO MODERATE PAIN LEVEL 7-8; Start 11/20/18 at 21:30 GARY GUNDERSON MD Nov 21, 2018 13:58
--- NOTE | 2018-11-21 14:53 | RADRPT ---
Echocardiogram Report Patient Name: CHARLEE JENSEN Gender: Male Date: 1985 Study Date: 21-Nov-2018 Blind Slat Stapling Machine Operator: Adalberto Roca RDCS Location: 505 Ref. Physician: GLORIA GERBER Quality: Adequate Procedures: Transthoracic echocardiogram with complete 2D, M-Mode, and doppler examination. Indications: Elevated troponin. 2D/M Mode Doppler Measurement Value Normal Ranges Measurement Value Normal Ranges LVIDd 2D 4.5 3.5 - 5.6 cm AV Peak El 1.4 m/sec LVIDs 2D 2.6 2.1 - 4.1 cm AV Peak PG 8.0 mmHg LVPWd 2D 1.1 0.6 - 1.1 cm LVOT Peak El 0.9 m/sec IVSd 2D 1.0 0.6 - 1.1 cm LVOT Peak PG 3.0 mmHg AoR Diam 2D 3.1 2.0 - 3.7 cm MV E Peak El 0.8 m/sec LA/Ao 2D 1 0 - 1 MV A Peak El 0.7 m/sec LA Dimen 2D 3.2 2.3 - 4.0 cm MV E/A 1.1 MV Decel Time 183 msec Lat E` El 0.2 m/sec Lateral E/E` 4.3 MV E/A 1.1 TR Peak El 2.2 m/sec TR Peak PG 20.0 mmHg RVSP 30.0 mmHg RA Pressure 10.0 Findings Left Ventricle: Normal left ventricular systolic function. Normal left ventricular cavity size. Mild concentric left ventricular hypertrophy. Ejection fraction is visually estimated at 60 %. Tissue Doppler/Mitral Doppler indices are within normal limits. Right Ventricle: Normal right ventricular size. Normal right ventricular systolic function. Left Atrium: The left atrium is normal in size. Right Atrium: The right atrium is normal in size. Mitral Valve: Normal appearance and function of the mitral valve with trace physiologic regurgitation. Aortic Valve: Normal appearance of the aortic valve. No significant aortic stenosis or insufficiency. Tricuspid Valve: Normal appearance of the tricuspid valve. Estimated peak PA systolic pressure 30 mmHg. There is trace tricuspid regurgitation. Pulmonic Valve: Normal pulmonic valve appearance. Pericardium: Normal pericardium with no significant pericardial effusion. Aorta: Normal aortic root. IVC: Normal size and normal respiratory collapse consistent with normal right atrial pressure. Conclusions Normal left ventricular systolic function. Normal left ventricular cavity size. Mild concentric left ventricular hypertrophy. Ejection fraction is visually estimated at 60 %. Tissue Doppler/Mitral Doppler indices are within normal limits. Normal appearance and function of the mitral valve with trace physiologic regurgitation. Normal appearance of the aortic valve. No significant aortic stenosis or insufficiency. Normal appearance of the tricuspid valve. Estimated peak PA systolic pressure 30 mmHg. There is trace tricuspid regurgitation. Electronically Signed By: Richie Ellis 21-Nov-2018 14:52:19 -0800 Patient Name: CHARLEE JENSEN Study Date: 21-Nov-2018 [id number]
[2018-11-21] MEDS ORDERED: METOPROLOL 5 MG INJ IV PRN (16:30)
--- NOTE | 2018-11-21 17:00 | CONS ---
Date/Time of Note Date/Time of Note DATE: 11/21/18 TIME: 16:34 Assessment/Plan Assessment/Plan Hospital Course 33 year-old presenting with strep pharyngitis and chest pain, with elevation of troponin. Most likely etiology is myocarditis, which could be best proven with cardiac MRI which is not available at this hospital. An acute coronary syndrome is much less likely. Assessment/Plan Impression: Chest pain in setting of strep pharyngitis, most likely due to myocarditis Elevated troponin Strep pharyngitis History of unknown prior cardiac procedure performed from a large left back/axillary incision at age 7 Recommendations: Will treat him empirically for myocarditis with metoprolol CT coronary angiogram to rule out significant coronary disease (less likely) Discussed rest, and abstaining from significant exertion for several weeks. Patient requests a note for work, which we can provide. Continue to treat his underlying illness with antibiotics. Result Diagram: 11/21/18 0544 11/21/18 0544 Results 24hrs Laboratory Tests Test 11/20/18 16:41 11/20/18 16:52 11/20/18 20:08 11/21/18 05:44 White Blood Count 18.4 #H 13.0 #H Red Blood Count 5.31 4.80 Hemoglobin 16.8 15.1 Hematocrit 47.7 44.1 Mean Corpuscular Volume 89.8 91.9 Mean Corpuscular 31.6 31.5 Hemoglobin Mean Corpuscular 35.2 34.2 Hemoglobin Concent Red Cell Distribution 12.3 12.0 Width Platelet Count 279 251 Mean Platelet Volume 10.1 # 10.3 Immature Granulocytes % 0.400 0.400 Neutrophils % 83.6 H 76.4 Lymphocytes % 9.5 L 14.4 L Monocytes % 6.0 7.2 Eosinophils % 0.2 1.1 Basophils % 0.3 0.5 Nucleated Red Blood 0.0 0.0 Cells % Immature Granulocytes # 0.080 H 0.050 H Neutrophils # 15.3 H 9.9 H Lymphocytes # 1.7 1.9 Monocytes # 1.1 H 0.9 Eosinophils # 0.0 0.1 Basophils # 0.1 0.1 Nucleated Red Blood 0.0 0.0 Cells # Prothrombin Time 12.5 Prothrombin Time Ratio 1.0 INR International 0.92 Normalized Ratio Activated 31.5 Partial Thromboplast Time Urine Color YELLOW Urine Clarity CLEAR Urine pH 7.0 Urine Specific [place] 1.021 Urine Ketones 2+ H Urine Nitrite NEGATIVE Urine Bilirubin NEGATIVE Urine Urobilinogen 2+ H Urine Leukocyte Esterase NEGATIVE Urine Microscopic RBC 14 H Urine Microscopic WBC 1 Urine Hemoglobin 2+ H Urine Glucose NEGATIVE Urine Total Protein NEGATIVE Sodium Level 141 143 Potassium Level 3.9 3.9 Chloride Level 100 106 Carbon Dioxide Level 26 25 Anion Gap 15 H 12 Blood Urea Nitrogen 12 9 Creatinine 0.67 0.52 L Est Glomerular Filtrat > 60 > 60 Rate mL/min Glucose Level 103 92 Calcium Level 9.3 8.5 Troponin I 0.190 *H 0.186 *H 0.111 Monoscreen Negative POC Venous Lactate 1.8 Lactic Acid Level 1.0 Creatine Kinase 156 154 Creatine Kinase Index 0.9 1.1 Creatinine Kinase MB 1.43 1.76 (Mass) Hemoglobin A1c 5.3 Magnesium Level 2.0 Total Bilirubin 0.5 Direct Bilirubin 0.00 Indirect Bilirubin 0.5 Aspartate Amino 27 Transf (AST/SGOT) Alanine 43 Aminotransferase (ALT/SG PT) Alkaline Phosphatase 78 Total Protein 6.9 Albumin 3.5 Globulin 3.40 H Albumin/Globulin Ratio 1.02 Triglycerides Level 86 Cholesterol Level 149 LDL Cholesterol, 95 Calculated HDL Cholesterol 37 Cholesterol/HDL Ratio 4.0 Thyroid Stimulating 3.050 Hormone (TSH) Consultation Date/Type/Reason Admit Date/Time 11/20/2018 Date of Consultation: Nov 21, 2018 Type of Consult cardiology Reason for Consultation elevated troponin Requesting Provider: GARY GUNDERSON MD Hx of Present Illness 33 year-old man with left upper back/axillary scar, presents with several days of sore throat, fever, and malaise, along with 5-6 hours of sharp chest pain yesterday. The pain was worse with taking deep breaths. Troponin noted to be elevated at 0.190, 0.189, and then on repeat falling to normal. Patient is being treated with antibiotics for strep infection. At present he has no chest pain. He has a history of surgery to his heart that he is not able to elaborate on, the surgery was done in [place] at a hospital [facility], but he states it was either for a hole in the heart or for a heart valve and was performed when he was about [age] years old. He has had no cardiac follow-up since. With antibiotic treatment, he is feeling somewhat better. He does no regular exercise, work involves exertion and heavy lifting. He denies any prior chest pain with exertion. History obtained with educational interpreter present. Constitutional: no complaints, improved, febrile Eyes: no complaints ENT: no complaints Respiratory: cough, shortness of breath Cardiovascular: chest pain Gastrointestinal: no complaints Genitourinary: no complaints Musculoskeletal: no complaints Skin: no complaints Neurologic: no complaints Endocrine: no complaints Psychological: no complaints, nl mood/affect Past Medical History Medications Current Medications Sodium Chloride 1,000 ml @ 80 mls/hr [id number] IV Last administered on 11/21/18at 09:55; Admin Dose 80 MLS/HR; Start 11/20/18 at 20:34 IV Flush (NS 3 ml) 3 ml PER PROTOCOL IV ; Start 11/20/18 at 21:00 Acetaminophen (Tylenol Tab) 650 mg Q6H PRN PO PAIN LEVEL 1-3 OR FEVER; Start 11/20/18 at 21:00 Acetaminophen/ Hydrocodone Bitart ([place] (5/325)) 1 tab Q6H PRN PO PAIN LEVEL 4-6; Start 11/20/18 at 21:00 Docusate Sodium (Colace) 100 mg Q12H PRN PO CONSTIPATION; Start 11/20/18 at 21:00 Bisacodyl (Dulcolax) 5 mg DAILY PRN PO CONSTIPATION; Start 11/20/18 at 21:00 Guaifenesin/ Dextromethorphan (Robitussin Dm Liquid Cup) 10 ml Q4H PRN PO COUGH; Start 11/20/18 at 21:00 Penicillin V Potassium (Penicillin V K) 500 mg Q8 PO Last administered on 11/21/18at 13:56; Admin Dose 500 MG; Start 11/20/18 at 22:00; Stop 11/30/18 at 21:59 Tramadol HCl (Ultram) 50 mg Q6H PRN PO MODERATE PAIN LEVEL 7-8; Start 11/20/18 at 21:30 Allergies: Coded Allergies: No Known Allergy (Unverified , 11/20/18) Past Surgical History Past Surgical Hx: other (unknown cardiac surgery) Family History Significant Family History: no pertinent family hx Social History Alcohol Use: none Smoking Status: Never smoker Drug Use: none Exam/Review of Systems Vital Signs Vitals Vital Signs Date Temp Pulse Resp B/P (MAP) Pulse Ox O2 O2 Flow FiO2 Time Delivery Rate 11/21/18 66 16:23 11/21/18 98.7 16 106/56 100 Nasal 2.0 15:26 (73) Cannula Intake and Output 11/20/18 11/20/18 11/21/18 1515:00 23:00 07:00 IntakeIntake Total 250 ml 580 ml OutputOutput Total 800 ml BalanceBalance 250 ml -220 ml Exam Constitutional: alert, oriented, obese Psych: no complaints, nl mood/affect Head: normocephalic, atraumatic Eyes: nl conjunctiva, EOMI, nl lids, nl sclera ENMT: nl external ears & nose, nl lips & teeth, nl nasal mucosa & septum Neck: supple; No jvd, No bruits Respiratory: clear to auscultation, normal air movement Cardiovascular: regular rate and rhythm, nl pulses; No murmurs/extra sounds Gastrointestinal: soft, nl liver, spleen, non-tender Musculoskeletal: nl extremities to inspection Extremities: normal pulses; No edema Neurological: nl mental status, nl speech Skin: diaphoresis; No rash or lesions Lymph: nl lymph nodes Medications Medications Current Medications Sodium Chloride 1,000 ml @ 80 mls/hr [id number] IV Last administered on 11/21/18at 09:55; Admin Dose 80 MLS/HR; Start 11/20/18 at 20:34 IV Flush (NS 3 ml) 3 ml PER PROTOCOL IV ; Start 11/20/18 at 21:00 Acetaminophen (Tylenol Tab) 650 mg Q6H PRN PO PAIN LEVEL 1-3 OR FEVER; Start 11/20/18 at 21:00 Acetaminophen/ Hydrocodone Bitart ([place] (5/325)) 1 tab Q6H PRN PO PAIN LEVEL 4-6; Start 11/20/18 at 21:00 Docusate Sodium (Colace) 100 mg Q12H PRN PO CONSTIPATION; Start 11/20/18 at 21:00 Bisacodyl (Dulcolax) 5 mg DAILY PRN PO CONSTIPATION; Start 11/20/18 at 21:00 Guaifenesin/ Dextromethorphan (Robitussin Dm Liquid Cup) 10 ml Q4H PRN PO COUGH; Start 11/20/18 at 21:00 Penicillin V Potassium (Penicillin V K) 500 mg Q8 PO Last administered on 11/21/18at 13:56; Admin Dose 500 MG; Start 11/20/18 at 22:00; Stop 11/30/18 at 21:59 Tramadol HCl (Ultram) 50 mg Q6H PRN PO MODERATE PAIN LEVEL 7-8; Start 11/20/18 at 21:30 Imaging Imaging EKG on presentation demonstrates sinus tachycardia at 100 bpm and is a normal appearing EKG. Echo report and images reviewed; he has normal cardiac structure, normal LV sy stolic function, no significant valvular abnormalities, no wall motion abnormalities noted. LATISHA MARTINEZ Nov 21, 2018 16:44
[2018-11-21] MEDS: METOPROLOL 25 MG TAB PO SCH (21:30)
[2018-11-22] VITALS (10 sets, daily range): BP systolic 96–118; BP diastolic 55–68; PULSE 42–75; RESP 16–20
[2018-11-22] MEDS ORDERED: METOPROLOL 25 MG TAB PO ONE
[2018-11-22] MEDS: PENICILLIN V K 250 MG TAB PO SCH ×3 (05:12→20:01)
[2018-11-22] MEDS: METOPROLOL 25 MG TAB PO SCH ×3 (08:29→20:01)
[2018-11-22] MEDS: SOD CHLORIDE 0.9% 1,000 ML IV SCH ×2 (09:24→20:01)
--- NOTE | 2018-11-22 09:42 | PN ---
Date/Time of Note Date/Time of Note DATE: 11/22/18 TIME: 09:38 Assessment/Plan VTE Prophylaxis Risk score (from Nsg)>0 risk: 0 SCD applied (from Nsg): Yes Pharmacological prophylaxis: NA/contraindicated Pharm contraindication: low risk/ambulating Lines/Catheters IV Catheter Type (from Nrsg): Peripheral IV Urinary Cath still in place: No Assessment/Plan Hospital Course 33 year-old presenting with strep pharyngitis and chest pain, with elevation of troponin. Most likely etiology is myocarditis, which could be best proven with cardiac MRI which is not available at this hospital. An acute coronary syndrome is much less likely. Assessment/Plan Impression: Elevated troponin, most likely due to a mild myocarditis Strep pharyngitis Recommendations: Continue metoprolol CT coronary angio to r/o significant CAD (unlikely but should be ruled out) Would restrict activity for at least two weeks of no heavy lifting If CT shows no significant CAD, then he is stable for discharge Result Diagram: 11/21/18 0544 11/21/18 0544 Subjective 24 Hr Interval Summary Free Text/Dictation He still has soreness in the throat. No chest pain. Overall feeling better. Exam/Review of Systems Vital Signs Vitals Vital Signs Date Temp Pulse Resp B/P (MAP) Pulse Ox O2 O2 Flow FiO2 Time Delivery Rate 11/22/18 60 08:07 11/22/18 97.9 20 106/66 99 07:29 (79) 11/21/18 Nasal 2.0 15:26 Cannula Intake and Output 11/21/18 11/21/18 11/22/18 1515:00 23:00 07:00 IntakeIntake Total 600 ml 1700 ml OutputOutput Total 800 ml BalanceBalance -200 ml 1700 ml Exam Constitutional: alert, oriented, obese Psych: no complaints, nl mood/affect Head: normocephalic, atraumatic Eyes: nl conjunctiva, EOMI, nl lids, nl sclera ENMT: nl external ears & nose, nl lips & teeth, nl nasal mucosa & septum Neck: supple; No jvd, No bruits Respiratory: clear to auscultation, normal air movement Cardiovascular: regular rate and rhythm Gastrointestinal: soft, nl liver, spleen, non-tender Musculoskeletal: nl extremities to inspection Extremities: normal pulses Neurological: nl mental status, nl speech Skin: nl turgor; No rash or lesions Medications Medications Current Medications Sodium Chloride 1,000 ml @ 80 mls/hr [id number] IV Last administered on 11/21/18at 21:30; Admin Dose 80 MLS/HR; Start 11/20/18 at 20:34 IV Flush (NS 3 ml) 3 ml PER PROTOCOL IV ; Start 11/20/18 at 21:00 Acetaminophen (Tylenol Tab) 650 mg Q6H PRN PO PAIN LEVEL 1-3 OR FEVER; Start 11/20/18 at 21:00 Acetaminophen/ Hydrocodone Bitart ([place] (5/325)) 1 tab Q6H PRN PO PAIN LEVEL 4-6 Last administered on 11/22/18at 00:22; Admin Dose 1 TAB; Start 11/20/18 at 21:00 Docusate Sodium (Colace) 100 mg Q12H PRN PO CONSTIPATION; Start 11/20/18 at 21:00 Bisacodyl (Dulcolax) 5 mg DAILY PRN PO CONSTIPATION; Start 11/20/18 at 21:00 Guaifenesin/ Dextromethorphan (Robitussin Dm Liquid Cup) 10 ml Q4H PRN PO C OUGH; Start 11/20/18 at 21:00 Penicillin V Potassium (Penicillin V K) 500 mg Q8 PO Last administered on 11/22/18at 05:12; Admin Dose 500 MG; Start 11/20/18 at 22:00; Stop 11/30/18 at 21:59 Tramadol HCl (Ultram) 50 mg Q6H PRN PO MODERATE PAIN LEVEL 7-8; Start 11/20/18 at 21:30 Metoprolol Tartrate (Lopressor) 12.5 mg TID PO Last administered on 11/22/18at 08:29; Admin Dose 12.5 MG; Start 11/21/18 at 21:00 LATISHA MARTINEZ Nov 22, 2018 09:42
[2018-11-22] MEDS ORDERED: IOHEXOL 100 ML ONE (11:04)
[2018-11-22] MEDS ORDERED: SOD CHLORIDE 0.9% 100 ML ONE (11:04)
[2018-11-22] MEDS ORDERED: METOPROLOL 5 MG INJ ONE (11:42)
[2018-11-22] MEDS ORDERED: NITROGLYCERIN AEROSOL (4.9 GM) ONE (11:42)
--- NOTE | 2018-11-22 13:09 | PN ---
Date/Time of Note Date/Time of Note DATE: 11/22/18 TIME: 13:00 Assessment/Plan VTE Prophylaxis Risk score (from Ns)>0 risk: 0 SCD applied (from Ns): Yes Pharmacological prophylaxis: other Pharm contraindication: low risk/ambulating Lines/Catheters IV Catheter Type (from Nrsg): Peripheral IV Urinary Cath still in place: No Assessment/Plan Assessment/Plan 1. Mild myocarditis, on metoprolol, follow up with coronary CTA r/o CAD 2. Strep pharyngitis, on PCN V 3. Left chest surgical scar, unclear history 4. Obesity 5. DVT prophylaxis: SCD Result Diagram: 11/21/18 0544 11/21/18543 Subjective 24 Hr Interval Summary Free Text/Dictation mild shortness of breath this morning but no chest pain, afebrile Exam/Review of Systems Vital Signs Vitals Vital Signs Date Temp Pulse Resp B/P (MAP) Pulse Ox O2 O2 Flow FiO2 Time Delivery Rate 11/22/18 98.1 69 20 104/62 96 12:26 (76) 11/21/18 Nasal 2.0 15:26 Cannula Intake and Output 11/21/18 11/21/18 11/22/18 1515:00 23:00 07:00 IntakeIntake Total 600 ml 1700 ml OutputOutput Total 800 ml BalanceBalance -200 ml 1700 ml Exam Constitutional: alert, oriented, well developed Psych: no complaints, nl mood/affect Head: normocephalic, atraumatic Eyes: nl conjunctiva, EOMI, nl lids ENMT: nl external ears & nose, nl lips & teeth, nl nasal mucosa & septum Neck: supple, non-tender Respiratory: clear to auscultation, normal air movement; No congested cough, No crackles/rales, No diminished breath sounds, No intercostal retraction, No labored breathing, No respirations, No tactile fremitus, No wheezing, No other Cardiovascular: regular rate and rhythm, nl pulses; No bruits, No diastolic murmur, No edema, No gallop, No irregular rhythm, No jugular venous distention (JVD), No murmurs/extra sounds, No rub, No systolic murmur, No S3, No S4, No other Gastrointestinal: soft, nl liver, spleen, non-tender Musculoskeletal: nl extremities to inspection Extremities: normal pulses; No calf tenderness, No cyanosis, No clubbing, No edema, No pitting pedal edema, No palpable cord, No tenderness, No other 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, nl mental status, nl speech, nl strength Skin: nl turgor Lymph: nl lymph nodes Medications Medications Current Medications Sodium Chloride 1,000 ml @ 80 mls/hr [id number] IV Last administered on 11/21/18at 21:30; Admin Dose 80 MLS/HR; Start 11/20/18 at 20:34 IV Flush (NS 3 ml) 3 ml PER PROTOCOL IV ; Start 11/20/18 at 21:00 Acetaminophen (Tylenol Tab) 650 mg Q6H PRN PO PAIN LEVEL 1-3 OR FEVER; Start 11/20/18 at 21:00 Acetaminophen/ Hydrocodone Bitart ([place] (5/325)) 1 tab Q6H PRN PO PAIN LEVEL 4-6 Last administered on 11/22/18at 00:22; Admin Dose 1 TAB; Start 11/20/18 at 21:00 Docusate Sodium (Colace) 100 mg Q12H PRN PO CONSTIPATION; Start 11/20/18 at 21:00 Bisacodyl (Dulcolax) 5 mg DAILY PRN PO CONSTIPATION; Start 11/20/18 at 21:00 Guaifenesin/ Dextromethorphan (Robitussin Dm Liquid Cup) 10 ml Q4H PRN PO COUGH; Start 11/20/18 at 21:00 Penicillin V Potassium (Penicillin V K) 500 mg Q8 PO Last administered on 11/22/18at 05:12; Admin Dose 500 MG; Start 11/20/18 at 22:00; Stop 11/30/18 at 21:59 Tramadol HCl (Ultram) 50 mg Q6H PRN PO MODERATE PAIN LEVEL 7-8; Start 11/20/18 at 21:30 Metoprolol Tartrate (Lopressor) 12.5 mg TID PO Last administered on 11/22/18at 08:29; Admin Dose 12.5 MG; Start 11/21/18 at 21:00 GARY GUNDERSON MD Nov 22, 2018 13:09
[2018-11-23] VITALS: BP 102/59; PULSE 64; PULSE 68; RESP 17
[2018-11-23 03:57] VITALS: BP 119/57; PULSE 84; RESP 19
[2018-11-23 04:00] VITALS: PULSE 92
[2018-11-23] MEDS: SOD CHLORIDE 0.9% 1,000 ML IV SCH (04:57)
[2018-11-23] MEDS: PENICILLIN V K 250 MG TAB PO SCH (04:57)
[2018-11-23 07:30] VITALS: BP_SYST 111; BP_SYST 130; BP_DIAS 72; BP_DIAS 82; PULSE 74; PULSE 78; RESP 18
[2018-11-23 08:00] VITALS: PULSE 90
[2018-11-23] MEDS: METOPROLOL 25 MG TAB PO SCH (08:13)
--- NOTE | 2018-11-23 09:11 | PN ---
Date/Time of Note Date/Time of Note DATE: 11/23/18 TIME: 09:06 Assessment/Plan VTE Prophylaxis Risk score (from Ns)>0 risk: 2 SCD applied (from Ns): Yes Pharmacological prophylaxis: NA/contraindicated Pharm contraindication: low risk/ambulating Lines/Catheters IV C[facility]ter Type (from [facility]): Peripheral IV Urinary Cath still in place: No Assessment/Plan Hospital Course 33 year-old presenting with strep pharyngitis and chest pain, with elevation of troponin, likely due to an acute myocarditis. Assessment/Plan Impression: Acute myocarditis Strep pharyngitis Recommendations: Would continue metoprolol as an outpatient for two months then taper off No heavy lifting for two weeks, then gradual return to previous work Stable for discharge from a cardiac standpoint Result Diagram: 11/23/18 0631 11/21/18 0544 Results 24hrs Laboratory Tests Test 11/23/18 06:31 White Blood Count 10.5 Red Blood Count 4.90 Hemoglobin 15.3 Hematocrit 44.5 Mean Corpuscular Volume 90.8 Mean Corpuscular Hemoglobin 31.2 Mean Corpuscular Hemoglobin Concent 34.4 Red Cell Distribution Width 12.0 Platelet Count 308 # Mean Platelet Volume 10.6 H Immature Granulocytes % 0.300 Neutrophils % 50.1 Lymphocytes % 34.8 Monocytes % 9.1 Eosinophils % 5.0 Basophils % 0.7 Nucleated Red Blood Cells % 0.0 Immature Granulocytes # 0.030 Neutrophils # 5.3 Lymphocytes # 3.7 H Monocytes # 1.0 H Eosinophils # 0.5 Basophils # 0.1 Nucleated Red Blood Cells # 0.0 Troponin I 0.083 Subjective 24 Hr Interval Summary Free Text/Dictation He's feeling better, sore throat better, no chest pain. Exam/Review of Systems Vital Signs Vitals Vital Signs Date Temp Pulse Resp B/P (MAP) Pulse Ox O2 O2 Flow FiO2 Time Delivery Rate 11/23/18 90 08:00 11/23/18 98.2 18 111/72 98 07:30 (85) 11/21/18 Nasal 2.0 15:26 Cannula Intake and Output 11/22/18 11/22/18 11/23/18 1515:00 23:00 07:00 IntakeIntake Total 920 ml 1570 ml BalanceBalance 920 ml 1570 ml Exam Constitutional: alert, oriented, obese Psych: no complaints, nl mood/affect Head: normocephalic, atraumatic Eyes: nl conjunctiva, EOMI, nl lids, nl sclera ENMT: nl external ears & nose, nl lips & teeth Neck: supple; No jvd, No bruits Respiratory: clear to auscultation, normal air movement Cardiovascular: regular rate and rhythm; No murmurs/extra sounds Gastrointestinal: soft, non-tender Musculoskeletal: nl extremities to inspection Extremities: normal pulses Neurological: nl mental status, nl speech Skin: nl turgor; No rash or lesions Medications Medications Current Medications Sodium Chloride 1,000 ml @ 80 mls/hr [id number] IV Last administered on 11/23/18at 04:57; Admin Dose 80 MLS/HR; Start 11/20/18 at 20:34 IV Flush (NS 3 ml) 3 ml PER PROTOCOL IV ; Start 11/20/18 at 21:00 Acetaminophen (Tylenol Tab) 650 mg Q6H PRN PO PAIN LEVEL 1-3 OR FEVER; Start 11/20/18 at 21:00 Acetaminophen/ Hydrocodone Bitart ([place] (5/325)) 1 tab Q6H PRN PO PAIN LEVEL 4-6 Last administered on 11/22/18at 00:22; Admin Dose 1 TAB; Start 11/20/18 at 21:00 Docusate Sodium (Colace) 100 mg Q12H PRN PO CONSTIPATION; Start 11/20/18 at 21:00 Bisacodyl (Dulcolax) 5 mg DAILY PRN PO CONSTIPATION; Start 11/20/18 at 21:00 Guaifenesin/ Dextromethorphan (Robitussin Dm Liquid Cup) 10 ml Q4H PRN PO COUGH; Start 11/20/18 at 21:00 Penicillin V Potassium (Penicillin V K) 500 mg Q8 PO Last administered on 11/23/18at 04:57; Admin Dose 500 MG; Start 11/20/18 at 22:00; Stop 11/30/18 at 21:59 Tramadol HCl (Ultram) 50 mg Q6H PRN PO MODERATE PAIN LEVEL 7-8; Start 11/20/18 at 21:30 Metoprolol Tartrate (Lopressor) 12.5 mg TID PO Last administered on 11/23/18at 08:13; Admin Dose 12.5 MG; Start 11/21/18 at 21:[address] coronaries reviewed, no significant lesions, coronary calcium score is zero LATISHA MARTINEZ Nov 23, 2018 09:11
[2018-11-23] MEDS ORDERED: METO25TA4 PO (11:01)
[2018-11-23] MEDS ORDERED: OSEL75CA23 PO (11:01)
[2018-11-23] MEDS ORDERED: METO-448 PO (11:01)
[2018-11-23] MEDS ORDERED: AMOX500C2 PO (11:01)
--- NOTE | 2018-11-23 11:04 | PDOCDIS ---
Discharge Instructions CONDITION [id number] Patient Condition: [id number] Stable HOME CARE INSTRUCTIONS: [id number] Diet Instructions: [id number] Low Fat /Cholesterol ACTIVITY: [id number] Activity Restrictions: [id number] Avoid heavy lifting ( for 2 weeks) FOLLOW UP/APPOINTMENTS Follow-up Plan 1. Followup with your primary doctor within the next 1-2 weeks. 2. If you don't have one please let someone know, we can give you resources that may help you pick one. You may call Dr Lei Yee's office. he's accepting new patients Name, Degree: Lei Yee MD Specialty: Internal Medicine Comments: Office Address: [address] [place] [address] [place], [place] [id number] Office Office You may also call your insurance company to assign one to you. 3. Review your medication list with your nurse before leaving and if you need new prescriptions please let your nurse know. 4. I may have made changes to your home medications or given you new prescriptions, please let your primary doctor know as well. 5. Stay compliant with your medications and report any side effects to your PCP or pharmacist. 6. Return to the ER if you have any concerns and cannot reach your doctors or call your insurance company, they usually have a nurse that can help you. 7. Please excuse patient from work from 11/22/17 till 11/27/18. No heavy lifting for 2 weeks SCHOOL/WORK RELEASE May return to School/Work on: Nov 27, 2018 May return to School/Work with: With Restrictions School/Work Release Comment: Please excuse patient from work from 11/22/17 . No heavy lifting for 2 weeks DAYLIN POMPA Nov 23, 2018 11:04
--- NOTE | 2018-11-23 19:30 | DS ---
DATE OF ADMISSION: 11/20/2018 DATE OF DISCHARGE: 11/23/2018 FINAL DIAGNOSES: A 33-year-old male who had presented with sore throat and chest pain with troponin elevation and managed for the followin. Acute myocarditis, resolved. 2. Strep pharyngitis. 3. Influenza A positive. CONSULT ON THE CASE: Dr. Xiao Zaragoza. INTERVENTION: A 2D echo that showed a normal left ventricular systolic function, ejection fraction o f 50%, no significant valvular abnormality. Blood cultures were negative. Rapid Strep was positive. Influenza screen was also positive for influenza A. DISCHARGE CONDITION: Stable. DISPOSITION: To home. DISCHARGE MEDICATIONS: The patient will complete amoxicillin for strep throat. He will also complet e a course of Tamiflu for influenza A. He will also be continued on metoprolol for two months and th en tapered off per cardiology recommendations. FOLLOWUP: He is recommended to follow up with the primary care doctor within the next 1 to 2 weeks t o ensure continued resolution of symptoms. He was given information on how to pick a doctor and give n recommendations on available physicians. He was also advised to follow up with the change of address clerk christofer mena to ensure everything remains fine. He has verbalized understanding. DISCHARGE INSTRUCTIONS: No heavy lifting for at least two weeks ago. The patient was given work exc use. Time spent on discharge coordination was at least 1 hour. Dictated By: DAYLIN POMPA MD BA/NTS Conf#: [id number] DID#: [id number] CC: GLORIA GERBER MD;*EndCC*
[2018-11-23] MEDS ORDERED: METOPROLOL 25 MG TAB PO SCH (21:00)
== END 2018-11-23 12:01 | disposition home or self-care (01) | DRG 865 ==
LOC: FTE 12:55 → TEL 20:07
PROVIDERS: ADMIT Family Medicine; ATTEND Internal Medicine
DX: J10.89 Influenza due to other identified influenza virus with other manifestations (principal); I40.9 Acute myocarditis, unspecified; J02.0 Streptococcal pharyngitis; E66.9 Obesity, unspecified; Z68.35 Body mass index [BMI] 35.0-35.9, adult
CPT/HCPCS: 36415; 71045; 75574; 80048; 80053; 80061; 81001; 82550; 82553; 83036; 83605; 83735; 84443; 84484; 85025; 85610; 85730; 86308; 87040; 87070; 87086; 87400; 87880; 93005; 93306; 96374; 96375; J0290; J0692; J1885; J3370; J7030; Q9967

== ENCOUNTER 2019-09-15 13:42 | Emergency (ER) | payer OTHER ==
[~2019-09-15] VITALS: Ht 175.3 cm; Wt 106.2 kg
[~2019-09-15 13:42] MED LIST changes: -ALBU8.5H8 INH; +AMOX500C2 PO; +BISM262O23 PO; -CETI10CA PO; +FAMO-96 PO; +GUAI120S25 PO; -GUAI120S26 PO; +METO-448 PO; +METO25TA4 PO; +NPH10OT RIGHT EAR; +ONDA4TAB14 PO
[2019-09-15 13:57] VITALS: Ht 175.3 cm; Wt 106.2 kg
[2019-09-15] MEDS ORDERED: AL HYDROX/MG HYDROX/SIMETH 30 ML CUP PO ONE (15:00)
[2019-09-15] MEDS ORDERED: LIDOCAINE 2% VISC 10 ML CUP PO ONE (15:00)
[2019-09-15 15:45] VITALS: BP 121/70; PULSE 81; RESP 18
== END 2019-09-15 15:45 | disposition home or self-care (01) ==
LOC: FTE 13:42
DX: R19.7 Diarrhea, unspecified (principal)
CPT/HCPCS: Z7502; Z7610; 99282